=== PATIENT | female | born 1995 | race African-American/Black ===

== ENCOUNTER 2021-12-15 07:48 | Emergency (ER) | payer BC, SELFPAY ==
[2021-12-15] VITALS (27 sets, daily range): BP systolic 105–135; BP diastolic 42–87; PULSE 44–69; RESP 11–22; TEMP 37.1–37.2; O2SAT 100
--- NOTE | ~2021-12-15 | XR_ITS ---
EXAMINATION: XR chest 2V 12/15/2021 08:29 INDICATION: Chest pain PROCEDURE: 2 view chest COMPARISON: No prior studies for comparison. FINDINGS: The lungs are clear. The cardiomediastinal silhouette is within normal limits. There are no pleural effusions. There is no pneumothorax suspected. IMPRESSION: 1: NO ACUTE CARDIOPULMONARY DISEASE. Reviewed, dictated and finalized at location B. [employer]PER[employer]
--- NOTE | 2021-12-15 07:59 | ECG_ITS ---
Measurements Intervals [place] Rate: 58 P: 53 MA: 171 QRS: 18 QRSD: 78 T: 24 QT: 397 QTc: 390 Interpretive Statements SINUS BRADYCARDIA BORDERLINE ECG Electronically Signed On 12-15-2021 8:25:13 [employer] by Henry Gonzalez D.O.
--- NOTE | 2021-12-15 08:20 | ED.CHESTPAIN ---
HPI - Chest Pain General Chief Complaint: Chest Pain Stated Complaint: chest pain Time Seen by Provider: 12/15/21 07:59 Source: patient and RN notes reviewed Mode of arrival: ambulatory Limitations: no limitations History of Present Illness HPI narrative: This is a 26 year old female who presents for evaluation of midsternal chest pain. Patient states she has been having this midsternal chest pain daily for 5 months. Her pain has been constant and gradually worsening. It is exacerbated by inspiration and bending over. She has not been taking for her pain. She has occasional shortness of breath with her pain. She denies URI symptoms, nausea, vomiting. She reports she has not been evaluated for this chest pain yet. Related Data Allergies Allergy/AdvReac Type Severity Reaction Status Date / Time No Known Allergies Allergy Verified 12/15/21 08:05 Review of Systems Review of Systems: All systems reviewed & are unremarkable except as noted in HPI and below Constitutional: Constitutional: Denies chills and Denies fever(s) ENT: Denies nasal congestion and Denies sore throat Cardiovascular: Cardiovascular: Reports chest pain and Denies radiating jaw, neck or arm pain Respiratory: Respiratory: Denies cough, Reports dyspnea and Denies wheezing Gastrointestinal: Gastrointestinal: Denies abdominal pain, Denies diarrhea, Denies nausea and Denies vomiting PMF Past Medical History Medical History (Updated 12/15/21 @ 12:38 by Luz Ames MD) PUD (peptic ulcer disease) Surgical History Surgical History (Updated 12/15/21 @ 08:23 by Luz Ames MD) No pertinent past surgical history Social History Social History (Updated 12/15/21 @ 08:23 by Luz Ames MD) Smoking status: Never smoker Substance use type: marijuana Exam Const: General: no acute distress and alert Orientation/consciousness: patient oriented x3 Eyes: EOM: EOMs intact bilaterally Neck: Neck: normal visual inspection Chest: Other: upper midsternal tenderness, no swelling, no erythema Resp: Effort & Inspection: normal respiratory effort and no retractions Auscultation: clear to auscultation bilaterally Cardio: Rate: regular rate Rhythm: regular rhythm Heart sounds: no murmurs GI: GI Palp: Yes Soft to palpation, No Tenderness to palpation present (GI) and No Guarding due to palpation present (GI) Auscultation: normal bowel sounds Back/Spine/Pelvis: Back: no CVA tenderness Skin: General skin exam: normal color Rashes: no rashes Neuro: General: patient oriented x3, moves all extremities and CN's II-XI intact bilaterally Extrem: General: normal to inspection Psych: Mental Status: mental status grossly normal Affect: normal affect Course Reevaluation(s) Reevaluation #1: Patient has no complaints. Her pain is less likely cardiac . I discussed discharge plan and follow up with PCP Date: 12/15/21 Time: 12:36 Vital Signs Vital signs: Vital Signs Pulse Rate 63 12/15/21 07:52 Respiratory Rate 16 12/15/21 07:52 Blood Pressure 135/78 12/15/21 07:52 Pulse Oximetry 100 12/15/21 07:52 Temperature 98.9 F 12/15/21 13:10 Pulse Rate 69 12/15/21 13:10 Respiratory Rate 18 12/15/21 13:10 Blood Pressure 113/65 12/15/21 13:10 Pulse Oximetry 100 12/15/21 13:10 MDM - Chest Pain Lab Data Attestation: I reviewed the patient's lab results. Result diagrams: 12/15/21 08:18 12/15/21 08:18 Labs: Lab Results 12/15/21 12/15/21 12/15/21 Range/Units 08:18 08:18 08:18 WBC 6.6 (4.5-10.0) K/mm3 RBC 4.05 L (4.2-5.4) M/mm3 Hgb 12.6 (12.0-15.0) g/dL Hct 38.4 (37.0-47.0) % MCV 94.8 (80-100) fl MCH 31.1 (26-34) pg MCHC 32.8 (32-36) g/dl RDW 13.4 (11.5-14.5) % Plt Count 332 (150-375) k/mm3 MPV 10.0 (7.4-10.4) fl Immature Gran % (Auto) 0.5 (0-0.5) % Neut % (Auto) 53.8 (45.5-73.1) %
[2021-12-15] MEDS: KETOROLAC 30 MG/ML VIAL (*BKC) IV PUSH (08:22)
--- NOTE | 2021-12-15 08:26 | PC.NURSE ---
Patient arrived to the [facility] with friend C/O increase in CP over the last 24 hours, yet CP has been ongoing since 07/2021. Per Pt she's having issues with breathing, walking and lighting. Denies pain to the jaw, back or arms, yet C/O of pain at times in the right leg denies pain in the leg at the time of assessment. Pt also reporte to RN has HX of infection in he abdominal has endo scope a few months ago and stated sice been on antibo has had no pain or ongoing issue. Pt is stable at time o he monitor and awaiting elevation and treatment
[2021-12-15 08:31] LABS: Basophils Absolute Auto 0.1 K/mm3 (0.0-0.1); Basophils Percent Auto 0.9 % (0.2-1.2); Eosinophils Absolute Auto 0.1 K/mm3 (0-0.3); Eosinophils Percent Auto 1.5 % (0-4.4); Hematocrit 38.4 % (37.0-47.0); Hemoglobin 12.6 g/dL (12.0-15.0); Immature Granulocyte Absolute 0.03 K/mm3 (0.00-0.031); Immature Granulocyte Percent A 0.5 % (0-0.5); Lymphocytes Absolute Auto 2.44 K/mm3 (0.9-3.2); Lymphocytes Percent Auto 37.2 % (18.3-44.2); Mean Corpuscular HGB Conc 32.8 g/dl (32-36); Mean Corpuscular Hemoglobin 31.1 pg (26-34); Mean Corpuscular Volume 94.8 fl (80-100); Monocytes Absolute Auto 0.4 K/mm3 (0.1-0.6); Monocytes Percent Auto 6.1 % (2.6-8.5); Neutrophils Absolute Auto 3.5 K/mm3 (1.3-6.7); Neutrophils Percent Auto 53.8 % (45.5-73.1); Platelet Count Result 332 k/mm3 (150-375); Red Blood Count 4.05 M/mm3 (4.2-5.4); Red Cell Distribution Width 13.4 % (11.5-14.5); White Blood Count 6.6 K/mm3 (4.5-10.0)
[2021-12-15 08:40] LABS: Partial Thromboplastin Time 28.9 SECONDS (22.3-36.8)
[2021-12-15 08:43] LABS: Alanine Aminotransferase 18 U/L (4-35); Albumin Level 4.6 g/dL (3.5-5.1); Alkaline Phosphatase 109 U/L (38-126); Anion Gap 5 mmol/L (8-16); Aspartate Amino Transferase 26 U/L (14-36); Bilirubin,Total 0.5 mg/dL (0.2-1.3); Blood Urea Nitrogen 13 mg/dL (7-17); Calcium 9.5 mg/dL (8.4-10.2); Carbon Dioxide 28 mmol/L (22-30); Chloride 106 mmol/L (98-107); D Dimer 0.31 ug/mL (<0.48); Estimated CRCL calculation 80 ml/min; Estimated Glomerular Filt Rate > 60; Glucose 96 mg/dL (65-110); Lipase 96 U/L (23-300); Potassium 4.1 mmol/L (3.4-5.0); Sodium 139 mmol/L (137-145)
[2021-12-15 08:44] LABS: Prothrombin Time 12.6 Seconds (11.1-14.7)
[2021-12-15 08:55] LABS: Troponin I < 0.012 ng/mL (0.000-0.034)
[2021-12-15 11:52] LABS: Troponin I 0.034 ng/mL (0.000-0.034)
== END 2021-12-15 13:24 | disposition home or self-care (01) ==
PROVIDERS: Emergency Provider General Practice
DX: R07.89 Other chest pain (principal); Z87.11 Personal history of peptic ulcer disease; R00.1 Bradycardia, unspecified
CPT/HCPCS: 36415; 71046; 80053; 83690; 84484; 85025; 85380; 85610; 85730; 93005; 96374; 99284; J1885